=== PATIENT | female | born 1985 | race Caucasian/White ===

== ENCOUNTER 2016-07-10 13:17 | Emergency (ER) | payer OTHER ==
[~2016-07-10 13:17] MED LIST: CALC500T21 PO; DOCU10CA PO; FISH500C PO; IBUP80TA PO; MAGN250T9 PO; PERCOCET PO; PRENTAB7 PO
[2016-07-10] MEDS ORDERED: NORCO, ANEXSIA 5/325MG TABLET (HYDROcodone/ACETAMINOPHEN) As Ordered ONE (14:03)
--- NOTE | 2016-07-10 14:43 | EDDOCDS ---
Nurse's Notes [facility] Name: Hailey Lyle Age: 31 yrs Sex: Female : 1985 Arrival Date: 07/10/2016 Time: 13:17 Bed TR7 Private MD: DRE Pickard Diagnosis: Strain of muscle and tendon of front wall of thorax-RIGHT INTERCOSTAL Presentation: 07/10 13:24 Presenting complaint: Patient states: Pt presents with hx bronchitis dx one month ago dls possible cracked rib from coughing right side seen at [facility] not improving. Adult Sepsis Screening: The patient does not have new or worsening altered mentation. Patient's respiratory rate is less than 22. Systolic blood pressure is greater than 100. Patient has a qSOFA score of 0- Negative Sepsis Screen. Suicide/Homicide risk assessment- the patient denies having any suicidal and/or homicidal ideations and does not present with any other emotional, behavioral or mental health complaints. Status: The patient is a dependent. Transition of care: patient was not received from another setting of care. 13:24 Acuity: MARGA Level 4 dls 13:24 Method Of Arrival: Walkin/Carried/Asstd dls Triage Assessment: 13:26 General: Appears in no apparent distress, well developed, well nourished, well groomed, dls Behavior is cooperative. Pain: Pain currently is 8 out of 10 on a pain scale. HIV screening NA for this visit Offered previously. 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 Aleve Unknown Oral 1 tab 2. Tylenol Unknown Oral - PMHx: none; - PSHx: right knee; ; - Social history: Smoking status: Patient/guardian denies using No barriers to communication noted, The patient speaks fluent Botswanan. - Family history: Not pertinent. - : The pt / caregiver states he / she is not on anticoagulants. Home medication list is obtained from the patient. - Exposure Risk Screening:: None identified. Screenin:41 Screening information is obtained from the patient. Primary language is Botswanan. Fall dls risk: No risks identified. Assistance ADL's: requires no assistance with activities of daily living. Abuse/DV Screen: The patient / caregiver reports he/she is: not in a situation that causes fear, pain or injury. Nutritional screening: No deficits noted. Advance Directives: Currently, there is no health care proxy. There is no active DNR order. There is no living will. There is no Power of Corrections Lieutenant. Advance directive information has not previously been placed in an [facility] medical record. home support is adequate. Assessment: 14:41 General: Appears in no apparent distress, slender, well developed, well nourished, well dls groomed. Awake, alert, oriented. Skin warm and dry. Moves all extremities. Bilateral breath sounds clear. Respirations unlabored. Abdomen soft, non-tender. No apparent distress. The patient / caregiver is instructed regarding the plan of care and ED course. Vital Signs: 13:19 BP 142 / 68; Pulse 74; Resp 16; Temp 98.3; Pulse Ox 99% ; Weight 65.77 kg; Height 5 ft. elp 1 in. (154.94 cm); Pain 8/10; 14:40 BP 134 / 66; Pulse 72; Resp 18; Temp 98.4; Pulse Ox 98% ; dls 13:19 Body Mass Index 27.40 (65.77 kg, 154.94 cm) elp Vitals: 13:19 Log In Time: July 10, 2016 at 13:17. el ED Course: 13:19 Patient visited by Elizabeth Chery PCA. elp 13:19 [place]er[place] [facility] [place] Private Physician. elp 13:19 Patient moved to Waiting elp 13:20 Patient moved to Pre RCE elp 13:25 Triage Initiated dls 13:34 Patient moved to Triage 3 nb2 13:52 [facility] dt4 13:52 Ana Rosa Mendoza MD is Attending Physician. dt4 13:52 Patient visited by Dinah Kendrick PA-C. dt4 14:03 Patient name changed from Hailey\S\\S\Clymans\S\ to Hailey\S\Karuna\S\Clymans. EDMS 14:04 Patient moved to TR2 js13 14:04 [facility] Payment Agreement was scanned into [employer] and attached to record. lg 14:35 Patient moved to PR1 / 25 dls 14:40 Patient moved to TR7 dls 14:41 Accompanied by Significant Other, Patient has correct armband on for positive dls identification. Bed in low position. Call light in reach. 14:42 No IV's were initiated during this patient's visit. No procedures done that require dls assistance. Administered Medications: 14:04 Drug: HYDROcodone-acetaminophen 1 tabs [hydrocodone 5 mg-acetaminophen 325 mg tablet (1 js13 tabs)] Route: PO; Order Results: There are currently no results for this order. Outcome: 14:30 Discharge ordered by Provider. dt4 14:41 The following High Risk Discharge criteria are identified: None. Discharged to home dls ambulatory, with significant other. Condition: stable. Discharge instructions given to patient, Instructed on discharge instructions, follow up and referral plans. medication usage, Demonstrated understanding of instructions, medications, Pt was receptive of discharge instructions/ teaching. Prescriptions given X 1. No special radiology studies were completed. 14:43 Discharge Assessment: Patient awake, alert and oriented x 3. No cognitive and/or dls functional deficits noted. Patient verbalized understanding of disposition instructions. patient administered narcotics - yes. Pt provided with safe discharge. Property sent home with patient. 14:43 Patient left the ED. dls Signatures: Dispatcher [employer] EDMS Kiara Harrell, RN RN dls Reyna Boles, Reg Reg Nay Abel,RN RN js13 Elizabeth Chery, AUTOMATED WEAVER AUTOMATED WEAVER Dinah Pal, PARoya PARoya dt4 Lizy Skinner2 MTDD
--- NOTE | 2016-07-10 14:43 | EDDOCDS ---
Physician Documentation [facility] Name: Hailey Lyle Age: 31 yrs Sex: Female : 1985 Arrival Date: 07/10/2016 Time: 13:17 Bed TR7 Private MD: [place] [facility] Disposition: 07/10/16 14:30 Discharged to Home/Self Care. Impression: Strain of muscle and tendon of front wall of thorax - RIGHT INTERCOSTAL. - Condition is Stable. - Discharge Instructions: Muscle Strain. - Prescriptions for [place] 5- 325 mg Oral Tablet - take 1 tablet by ORAL route every 6 hours As needed MDD: 4 tabs; MAY CAUSE DROWSINESS. 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 - Medication Reconciliation, Local Pharmacy Hours form. - Follow up: Emergency Department; When: As needed; Reason: Worsening of conditions. Follow up: Private Physician; When: 4 - 5 days; Reason: Wound/Symptom Recheck, Recheck today's complaints, Continuance of care. - Problem is new. - Symptoms are unchanged. Historical: - Allergies: no known allergies; - Home Meds: 1. Aleve Unknown Oral 1 tab 2. Tylenol Unknown Oral - PMHx: none; - PSHx: right knee; ; - Social history: Smoking status: Patient/guardian denies using No barriers to communication noted, The patient speaks fluent Occitan. - Family history: Not pertinent. - : The pt / caregiver states he / she is not on anticoagulants. Home medication list is obtained from the patient. - Exposure Risk Screening:: None identified. 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 1 in. (154.94 cm); Pain 8/10; 14:40 BP 134 / 66; Pulse 72; Resp 18; Temp 98.4; Pulse Ox 98% ; dls 13:19 Body Mass Index 27.40 (65.77 kg, 154.94 cm) elp MDM: 13:53 Financial registration complete. lg 14:02 HYDROcodone-acetaminophen 5 mg-325 mg 1 tabs PO once ordered. dt4 14:03 Rib Unilat W/PA Chest Only Ordered. EDMS 14:04 [facility] Payment Agreement was scanned into [employer] and attached to record. lg Administered Medications: 14:04 Drug: HYDROcodone-acetaminophen 1 tabs [hydrocodone 5 mg-acetaminophen 325 mg tablet (1 js13 tabs)] Route: PO; Signatures: Dispatcher [employer] EDMS Kiara Harrell RN RN dls Reyna Boles, Reg Reg lg Dinah Kendrick PA-C PA-C dt4 Nay Avalos RN js13 The chart was reviewed and I authenticate all verbal orders and agree with the evaluation and treatment provided.Attachments: 14:04 [facility]CLUDES [facility] Payment Agreement lg MTDD
--- NOTE | 2016-07-10 17:06 | REP ---
Right rib series: Five views. History: Right chest wall pain. Coughing. Findings: PA chest radiograph is normal. There is no evidence of infiltrate or free subdiaphragmatic air. Heart is not enlarged. Mediastinum is not widened. Multiple views of the right rib cage show no visible right rib fracture or bony destructive lesion. Impression: Negative views of the chest and right rib cage. Signed by Darrell Gutierrez MD 07/10/2016 05:34 P
--- NOTE | 2016-07-13 11:11 | EDDOCDS ---
Nurse's Notes [facility] Name: Hailey Lyle Age: 31 yrs Sex: Female : 1985 Arrival Date: 07/10/2016 Time: 13:17 Bed TR7 Private MD: DRE Pickard Diagnosis: Strain of muscle and tendon of front wall of thorax-RIGHT INTERCOSTAL Presentation: 07/10 13:24 Presenting complaint: Patient states: Pt presents with hx bronchitis dx one month ago dls possible cracked rib from coughing right side seen at [facility] not improving. Adult Sepsis Screening: The patient does not have new or worsening altered mentation. Patient's respiratory rate is less than 22. Systolic blood pressure is greater than 100. Patient has a qSOFA score of 0- Negative Sepsis Screen. Suicide/Homicide risk assessment- the patient denies having any suicidal and/or homicidal ideations and does not present with any other emotional, behavioral or mental health complaints. Status: The patient is a dependent. Transition of care: patient was not received from another setting of care. 13:24 Acuity: MARGA Level 4 dls 13:24 Method Of Arrival: Walkin/Carried/Asstd dls Triage Assessment: 13:26 General: Appears in no apparent distress, well developed, well nourished, well groomed, dls Behavior is cooperative. Pain: Pain currently is 8 out of 10 on a pain scale. HIV screening NA for this visit Offered previously. 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 Aleve Unknown Oral 1 tab 2. Tylenol Unknown Oral - PMHx: none; - PSHx: right knee; ; - Social history: Smoking status: Patient/guardian denies using No barriers to communication noted, The patient speaks fluent Emirati. - Family history: Not pertinent. - : The pt / caregiver states he / she is not on anticoagulants. Home medication list is obtained from the patient. - Exposure Risk Screening:: None identified. Screenin:41 Screening information is obtained from the patient. Primary language is Emirati. Fall dls risk: No risks identified. Assistance ADL's: requires no assistance with activities of daily living. Abuse/DV Screen: The patient / caregiver reports he/she is: not in a situation that causes fear, pain or injury. Nutritional screening: No deficits noted. Advance Directives: Currently, there is no health care proxy. There is no active DNR order. There is no living will. There is no Power of [place]. Advance directive information has not previously been placed in an [facility] medical record. home support is adequate. Assessment: 14:41 General: Appears in no apparent distress, slender, well developed, well nourished, well dls groomed. Awake, alert, oriented. Skin warm and dry. Moves all extremities. Bilateral breath sounds clear. Respirations unlabored. Abdomen soft, non-tender. No apparent distress. The patient / caregiver is instructed regarding the plan of care and ED course. Vital Signs: 13:19 BP 142 / 68; Pulse 74; Resp 16; Temp 98.3; Pulse Ox 99% ; Weight 65.77 kg; Height 5 ft. elp 1 in. (154.94 cm); Pain 8/10; 14:40 BP 134 / 66; Pulse 72; Resp 18; Temp 98.4; Pulse Ox 98% ; dls 13:19 Body Mass Index 27.40 (65.77 kg, 154.94 cm) elp Vitals: 13:19 Log In Time: July 10, 2016 at 13:17. el ED Course: 13:19 Patient visited by Elizabeth Chery PCA. elp 13:19 Neeraj [facility] is Private Physician. elp 13:19 Patient moved to Waiting elp 13:20 Patient moved to Pre RCE elp 13:25 Triage Initiated dls 13:34 Patient moved to Triage 3 nb2 13:52 [facility]. dt4 13:52 Ana Rosa Mendoza MD is Attending Physician. dt4 13:52 Patient visited by Dinah Kendrick PA-C. dt4 14:03 Patient name changed from Hailey\S\\S\Clymans\S\ to Hailey\S\Karuna\S\Clymans. EDMS 14:04 Patient moved to TR2 js13 14:04 [facility] Payment Agreement was scanned into [employer] and attached to record. lg 14:35 Patient moved to PR1 / 25 dls 14:40 Patient moved to TR7 dls 14:41 Accompanied by Significant Other, Patient has correct armband on for positive dls identification. Bed in low position. Call light in reach. 14:42 No IV's were initiated during this patient's visit. No procedures done that require dls assistance. 17:10 Rib Unilat W/PA Chest Only Returned. EDAZ 20:27 T-Sheet-- Draft Copy was scanned into [employer] and attached to record. klr 07/11 08:57 Radiology Report was scanned into [employer] and attached to record. gb Administered Medications: 07/10 14:04 Drug: HYDROcodone-acetaminophen 1 tabs [hydrocodone 5 mg-acetaminophen 325 mg tablet (1 js13 tabs)] Route: PO; Order Results: Radiology Order: Rib Unilat W/PA Chest Only Test: Rib Unilat W/PA Chest Only REASON FOR EXAMINATION: RIGHT CHEST WALL PAIN; Right rib series: Five views.; ; History: Right chest wall pain. Coughing.; ; Findings: PA chest radiograph is normal. There is no evidence of infiltrate or; free subdiaphragmatic air. Heart is not enlarged. Mediastinum is not widened.; ; Multiple views of the right rib cage show no visible right rib fracture or bony; destructive lesion.; ; Impression:; ; Negative views of the chest and right rib cage.; ; ; Signed by; Darrell Gutierrez MD 07/10/2016 05:34 P; Outcome: 14:30 Discharge ordered by Provider. dt4 14:41 The following High Risk Discharge criteria are identified: None. Discharged to home dls ambulatory, with significant other. Condition: stable. Discharge instructions given to patient, Instructed on discharge instructions, follow up and referral plans. medication usage, Demonstrated understanding of instructions, medications, Pt was receptive of discharge instructions/ teaching. Prescriptions given X 1. No special radiology studies were completed. 14:43 Discharge Assessment: Patient awake, alert and oriented x 3. No cognitive and/or dls functional deficits noted. Patient verbalized understanding of disposition instructions. patient administered narcotics - yes. Pt provided with safe discharge. Property sent home with patient. 14:43 Patient left the ED. dls Signatures: Dispatcher [employer]Host EDAZ Kiara Harrell RN RN dls Rowena Villeda, Reg Reg gb Reyna Boles, Reg Reg lg Nay Avalos RN RN js13 Elizabeth Chery, DATA ANALYTICS SPECIALIST DATA ANALYTICS SPECIALIST elp Dinah Kendrick, GONZALES PA-C dt4 Priyanka Woodall Nicole nb2 Chart Complete MTDD
--- NOTE | 2016-07-13 11:11 | EDDOCDS ---
Physician Documentation [facility] Name: Hailey Lyle Age: 31 yrs Sex: Female : 1985 Arrival Date: 07/10/2016 Time: 13:17 Bed TR7 Private MD: Neeraj [facility] Disposition: 07/10/16 14:30 Discharged to Home/Self Care. Impression: Strain of muscle and tendon of front wall of thorax - RIGHT INTERCOSTAL. - Condition is Stable. - Discharge Instructions: Muscle Strain. - Prescriptions for [place] 5- 325 mg Oral Tablet - take 1 tablet by ORAL route every 6 hours As needed MDD: 4 tabs; MAY CAUSE DROWSINESS. 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 - Medication Reconciliation, Local Pharmacy Hours form. - Follow up: Emergency Department; When: As needed; Reason: Worsening of conditions. Follow up: Private Physician; When: 4 - 5 days; Reason: Wound/Symptom Recheck, Recheck today's complaints, Continuance of care. - Problem is new. - Symptoms are unchanged. Historical: - Allergies: no known allergies; - Home Meds: 1. Aleve Unknown Oral 1 tab 2. Tylenol Unknown Oral - PMHx: none; - PSHx: right knee; ; - Social history: Smoking status: Patient/guardian denies using No barriers to communication noted, The patient speaks fluent Faroese. - Family history: Not pertinent. - : The pt / caregiver states he / she is not on anticoagulants. Home medication list is obtained from the patient. - Exposure Risk Screening:: None identified. 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 1 in. (154.94 cm); Pain 8/10; 14:40 BP 134 / 66; Pulse 72; Resp 18; Temp 98.4; Pulse Ox 98% ; dls 13:19 Body Mass Index 27.40 (65.77 kg, 154.94 cm) elp MDM: 13:53 Financial registration complete. lg 14:02 HYDROcodone-acetaminophen 5 mg-325 mg 1 tabs PO once ordered. dt4 14:03 Rib Unilat W/PA Chest Only Ordered. EDMS 14:04 [facility] Payment Agreement was scanned into [employer] and attached to record. lg 20:27 T-Sheet-- Draft Copy was scanned into [employer] and attached to record. klr 07/11 08:57 Radiology Report was scanned into [employer] and attached to record. gb Administered Medications: 07/10 14:04 Drug: HYDROcodone-acetaminophen 1 tabs [hydrocodone 5 mg-acetaminophen 325 mg tablet (1 js13 tabs)] Route: PO; Signatures: Dispatcher [employer] EDMS Kiara Harrell, RN RN dls Rowena Villeda, Reg Reg gb Reyna Boles, Reg Reg lg Dinah Kendrick PA-C PA-C dt4 Priyanka Woodall Jennifer RN js13 The chart was reviewed and I authenticate all verbal orders and agree with the evaluation and treatment provided.Attachments: 14:04 [facility] Payment Agreement lg 20:27 T-Sheet-- Draft Copy klr Chart Complete MTDD
--- NOTE | 2016-07-13 11:11 | EDDOCDS ---
Physician Documentation [facility] Name: Hailey Lyle Age: 31 yrs Sex: Female : 1985 Arrival Date: 07/10/2016 Time: 13:17 Bed TR7 Private MD: Neeraj [facility] [place] Disposition: 07/10/16 14:30 Discharged to Home/Self Care. Impression: Strain of muscle and tendon of front wall of thorax - RIGHT INTERCOSTAL. - Condition is Stable. - Discharge Instructions: Muscle Strain. - Prescriptions for [place] 5- 325 mg Oral Tablet - take 1 tablet by ORAL route every 6 hours As needed MDD: 4 tabs; MAY CAUSE DROWSINESS. 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 - Medication Reconciliation, Local Pharmacy Hours form. - Follow up: Emergency Department; When: As needed; Reason: Worsening of conditions. Follow up: Private Physician; When: 4 - 5 days; Reason: Wound/Symptom Recheck, Recheck today's complaints, Continuance of care. - Problem is new. - Symptoms are unchanged. Historical: - Allergies: no known allergies; - Home Meds: 1. Aleve Unknown Oral 1 tab 2. Tylenol Unknown Oral - PMHx: none; - PSHx: right knee; ; - Social history: Smoking status: Patient/guardian denies using No barriers to communication noted, The patient speaks fluent Turkish. - Family history: Not pertinent. - : The pt / caregiver states he / she is not on anticoagulants. Home medication list is obtained from the patient. - Exposure Risk Screening:: None identified. 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 1 in. (154.94 cm); Pain 8/10; 14:40 BP 134 / 66; Pulse 72; Resp 18; Temp 98.4; Pulse Ox 98% ; dls 13:19 Body Mass Index 27.40 (65.77 kg, 154.94 cm) elp MDM: 13:53 Financial registration complete. lg 14:02 HYDROcodone-acetaminophen 5 mg-325 mg 1 tabs PO once ordered. dt4 14:03 Rib Unilat W/PA Chest Only Ordered. EDMS 14:04 [facility] Payment Agreement was scanned into [employer] and attached to record. lg 20:27 T-Sheet-- Draft Copy was scanned into [employer] and attached to record. klr 07/11 08:57 Radiology Report was scanned into [employer] and attached to record. gb Administered Medications: 07/10 14:04 Drug: HYDROcodone-acetaminophen 1 tabs [hydrocodone 5 mg-acetaminophen 325 mg tablet (1 js13 tabs)] Route: PO; Signatures: Dispatcher [employer] EDMS Kiara Harrell, RN RN dls Rowena Villeda, Reg Reg gb Reyna Boles, Reg Reg lg Dinah Kendrick PA-C PA-C dt4 Priyanka Woodall Jennifer RN js13 The chart was reviewed and I authenticate all verbal orders and agree with the evaluation and treatment provided.Attachments: 14:04 [facility] Payment Agreement lg 20:27 T-Sheet-- Draft Copy klr Chart Complete MTDD
== END 2016-07-10 14:43 | disposition home or self-care (01) ==
LOC: M ED 13:17
DX: S29.011A Strain of muscle and tendon of front wall of thorax, initial encounter (principal); X58.XXXA Exposure to other specified factors, initial encounter; Y92.89 Other specified places as the place of occurrence of the external cause; Y93.89 Activity, other specified; Y99.8 Other external cause status